=== PATIENT | female | born 1945 | race Caucasian/White ===

== ENCOUNTER 2018-10-31 05:41 | Observation (INO) ==
--- NOTE | 2018-10-17 10:56 | PAT Medication Instructions ---
Medication Instructions Date of Service October 17, 2018 Home Medications levothyroxine 75 mcg PO QAM pantoprazole 40 mg PO DAILY pravastatin 10 mg PO HS aspirin 81 mg PO HS ASK your prescriber and surgeon aspirin 81 mg PO HS Take morning of surgery With a small sip of water, OTHERWISE NOTHING TO EAT OR DRINK AFTER MIDNIGHT: levothyroxine 75 mcg PO QAM pantoprazole 40 mg PO DAILY Take evening before surgery pravastatin 10 mg PO HS Other Notes If you have any questions please call us at [phone] or [phone] or [phone] or [phone]
--- NOTE | 2018-10-18 13:42 | Anesthesiology Consultation ---
Date of Service October 18, 2018 Assessment & Plan (1) Encounter for pre-operative examination: Chart Review Chart Review: Acceptable Risk for Surgery and Patient seen in Pre Admission Testing Teaching & Discussion Pre-Anesthesia Teaching/Discussion Notes: Instructed NPO after midnight before surgery,except medications with 15 cc of water. Medication instructions provided according to the PAT guidelines. History Surgery Operation Date: 10/31/18 07:30 Proposed Procedures p Robotic Laparoscopic Fundoplication - Keshav Soto MD, FACS s with Esophagogastroduodenoscopy - Keshav Soto MD, FACS Height/Weight Height: 5 ft 6 in Weight: 82.7 kg Allergies Allergy/AdvReac Type Severity Reaction Status Date / Time No Known Allergies Allergy Verified 10/11/18 10:16 Medications Home Medications Medication Instructions Recorded Confirmed Last Taken levothyroxine 75 mcg PO QAM 07/27/18 10/11/18 10/11/18 pantoprazole 40 mg PO DAILY 07/27/18 10/11/18 10/11/18 pravastatin 10 mg PO HS 07/27/18 10/11/18 10/10/18 aspirin 81 mg PO HS 08/02/18 10/11/18 10/10/18 Past Medical History Medical History Barretts esophagus GERD (gastroesophageal reflux disease) Hiatal hernia Hyperlipidemia Hypothyroidism Osteoarthritis Past Family History Family History Mother Family history of diabetes mellitus Grandmother (Paternal) Family hx of colon cancer Other No family history of adverse response to anesthesia Past Surgical History Surgical History History of appendectomy History of bilateral tubal ligation History of blepharoplasty bilateral History of colonoscopy History of dilatation and curettage History of esophagogastroduodenoscopy (EGD) History of left breast biopsy benign History of left cataract extraction History of tonsillectomy and adenoidectomy History of tooth extraction History of wisdom tooth extraction Past Anesthesia History No Hx of Anesthesia Complications and No Family Hx of Anesthesia Complications History of PONV No Motion Sickness Screening History of Motion Sickness: No Social History Smoking Status: Former smoker Do You Dip or Chew Tobacco: No Smoking End Date: 1994 Hx Alcohol Use: Yes Alcohol type: wine alcohol intake frequency: other Alcohol Intake Frequency Comment: 1 GLASS A WEEK Hx Substance Use: No substance use type: does not use Exercise / Class Metabolic Activity II 4-5 Yardwork/Stairs/Walk up hill Review of Systems Patient denies chest pain, shortness of breath, dyspnea on exertion, wheezing, palpitations. Physical Exam Vital Signs VITALS BP 136/85 P 80 TEMP 98.0 SP02 96%RA RESP 16 PHYSICAL Full neck and c-spine range of motion. Full TMJ range of motion. TMD 4 finger breaths Mallampati Score 3 Dentition: intact, crowns on upper front, lower right permanent bridge Lungs: clear throughout to auscultation Cardiac: regular rate and rhythm, no murmurs noted Spine: normal Carotid arteries: negative bruit Extremities: no edema Testing Electrocardiogram Date: 10/18/18 Normal sinus rhythm at 77bpm. PRWP. Low voltage QRS. Laboratory Results 10/18/18 14:03 10/18/18 14:03 Blood Type AB Negative 10/18/18 14:03 Antibody Screen NEGATIVE 10/18/18 14:03
[2018-10-18 15:08] LABS: Basophils # (auto) 0.02 K/uL (0-0.2); Basophils % (auto) 0.3 %; Eosinophils # (auto) 0.11 K/uL (0-0.5); Eosinophils % (auto) 1.7 %; Hematocrit (blood only) 38.4 % (37-47); Hemoglobin 13.1 g/dL (12.0-16.0); Immature Granulocytes # (auto) 0.01 K/uL (0.00-0.02); Immature Granulocytes % (auto) 0.2 %; Lymphocytes # (auto) 2.17 K/uL (1.2-3.4); Lymphocytes % (auto) 33.7 %; Mean Corpuscular Hemoglobin 31.7 pg (25-34); Mean Corpuscular Hgb Conc 34.1 g/dL (32-36); Mean Platelet Volume 10.8 fL (7.4-10.4); Monocytes # (auto) 0.54 K/uL (0.11-0.59); Monocytes % (auto) 8.4 %; Neutrophils # (auto) 3.58 K/uL (1.4-6.5); Neutrophils % (auto) 55.7 %; Platelet Count 226 K/uL (130-400); RDW Coefficient of Variation 13.6 % (11.5-14.5); RDW Standard Deviation 46.3 fL (36.4-46.3); Red Blood Count 4.13 M/uL (4.2-5.4); White Blood Count 6.43 K/uL (4.8-10.8)
[2018-10-18 15:15] LABS: Calcium 9.3 mg/dl (8.5-10.1); Creatinine Clr Calc Pharmacy 99.9 ml/min; Est GFR (African American) 108.7; Est GFR (Non-African American) 93.8
[2018-10-31] MEDS ORDERED: LR 15ML/HR IV SCH (06:00)
--- NOTE | 2018-10-31 06:55 | History & Physical Bridge Note ---
Date of Service October 31, 2018 History & Physical Bridge Note I have examined the patient, reviewed the History & Physical and in the interval since the performance of the History & Physical I have noted the following changes of clinical significance: no changes noted
[2018-10-31] MEDS ORDERED: ROCURONIUM BROMIDE 10 MG/ML 5 ML VIAL ONE ×2 (07:03→08:28)
[2018-10-31] MEDS ORDERED: PROPOFOL IV EMULSION 10 MG/ML 20 ML VIAL IV ONE (07:03)
[2018-10-31] MEDS ORDERED: SUCCINYLCHOLINE CHLORIDE 20 MG/ML 10 ML VIAL ONE (07:03)
[2018-10-31] MEDS ORDERED: LIDOCAINE HCL 2% 2 ML VIAL/AMP(20MG/ML) INFIL ONE (07:03)
[2018-10-31] MEDS ORDERED: MIDAZOLAM HCL 1 MG/ML 2ML VIAL ONE (07:03)
[2018-10-31] MEDS ORDERED: fentaNYL citrate 100 MCG/2 ML VIAL ONE (07:03)
[2018-10-31] MEDS ORDERED: DEXAMETHASONE SOD INJ 4 MG/ML VIAL ONE (07:07)
[2018-10-31] MEDS ORDERED: ONDANSETRON INJ 2 MG/ML 2 ML VIAL ONE ×2 (07:07→17:14)
[2018-10-31] MEDS ORDERED: DEXAMETHASONE SOD INJ 4 MG/ML VIAL IV PRN (07:11)
[2018-10-31] MEDS ORDERED: ATROPINE SULFATE 0.1 MG/ML 10ML SYR IV PRN (07:11)
[2018-10-31] MEDS ORDERED: fentaNYL citrate 100 MCG/2 ML VIAL IV PRN (07:11)
[2018-10-31] MEDS ORDERED: ePHEDrine sulfate 50 MG/ML AMP IV PRN (07:11)
[2018-10-31] MEDS ORDERED: KETOROLAC 30 MG/ML VIAL IV PRN (07:11)
[2018-10-31] MEDS ORDERED: ONDANSETRON INJ 2 MG/ML 2 ML VIAL IV PRN (07:11)
[2018-10-31] MEDS ORDERED: HYDROmorphone INJ 2 MG/ML SYR/VIAL IV PRN (07:11)
[2018-10-31] MEDS ORDERED: SODIUM CHLORIDE 0.9% PF 50 ML VIAL ONE (07:22)
[2018-10-31] MEDS ORDERED: BUPIVACAINE 0.5 % 5 MG/1 ML MPF 30ML VIAL ONE (07:22)
[2018-10-31] MEDS ORDERED: BUPIVACAINE LIPOSOME 1.3% 266 MG/20 ML VIAL ONE (07:22)
[2018-10-31] MEDS ORDERED: HYDROmorphone INJ 2 MG/ML SYR/VIAL ONE (08:09)
[2018-10-31] MEDS ORDERED: PHENYLEPHRINE 100MCG/ML 5ML SYR ONE (08:28)
[2018-10-31] MEDS ORDERED: ePHEDrine sulfate 50 MG/ML SYR ONE (08:28)
--- NOTE | 2018-10-31 10:24 | Post Operative Brief Note ---
Immediate Post Op Note v1 Date of Surgery October 31, 2018 Pre & Post Diagnosis Operation Date: 10/31/18 07:30 Pre-Op Diagnosis: Gastroesophageal Reflux Post-Op Diagnosis: Gastroesophageal Reflux Procedure Operation Date: 10/31/18 07:30 Actual Procedures p Robotic Repair hiatal hernia with bioprosthetic patch;Laparoscopic Elly F undoplication (Not Applicable) - Keshav Soto MD, FACS s Esophagogastroduodenoscopy(Not Applicable) - Keshav Soto MD, FACS Surgeon Keshav Soto MD, FACS Pulp Maker Deidre Reveles Estimated Blood Loss 10 Findings Consistent with Post-Op Diagnosis Drains Vivar Catheter
[2018-10-31] MEDS ORDERED: METOCLOPRAMIDE HCL INJ 5 MG/ML 2 ML VIAL ONE (10:43)
[2018-10-31] MEDS ORDERED: METOCLOPRAMIDE HCL INJ 5 MG/ML 2 ML VIAL IV ONE (10:45)
--- NOTE | 2018-10-31 10:53 | XRay Report ---
XR chest 1V portable CLINICAL HISTORY: s/p jo fundoplication postoperative evaluation COMPARISON STUDY: No previous studies for comparison. FINDINGS: Lungs are considered clear. No evidence for pneumothorax. Small amount subcutaneous and low cervical subcutaneous emphysematous change. Mild bibasilar atelectasis. IMPRESSION: 1. Postoperative changes including subcutaneous emphysematous change. 2. Lungs are grossly clear with mild left basilar atelectasis. 3. Fixed hiatal hernia. The above report was generated using voice recognition software. It may contain grammatical, syntax or spelling errors. Electronically signed by: Dennis Santos M.D. 10/31/2018 10:51 AM
[2018-10-31] MEDS ORDERED: OXYCODONE HCL IR 5 MG TAB (IMMEDIATE RELEASE) PO PRN (11:50)
[2018-10-31] MEDS ORDERED: METOCLOPRAMIDE HCL INJ 5 MG/ML 2 ML VIAL IV SCH (12:00)
--- NOTE | 2018-10-31 12:00 | Anesthesiology Progress Note ---
Date of Service October 31, 2018 Anesthesia Post Procedure Vital Signs Vital Signs: Temp Pulse Pulse Resp BP Pulse Ox 10/31/18 11:15 36.4 C L 99 H 14 138/78 99 10/31/18 11:05 95 H 12 145/86 H 100 10/31/18 10:55 86 14 135/85 100 10/31/18 10:45 97 H 15 134/68 99 10/31/18 10:37 36.2 C L 109 H 16 137/86 99 10/31/18 06:07 36.8 C 77 20 158/98 H 96 Pain Intensity Abdomen: Pain Intensity: 2 Transfer of Care Handoff Completed per policy Notes Mental Status: alert / awake / arousable and participated in evaluation Patient Amnestic to Procedure: Yes Nausea / Vomiting: adequately controlled Pain: adequately controlled Airway Patency, RR, SpO2: stable & adequate BP & HR: stable & adequate Hydration State: stable & adequate Anesthetic Complications: no major complications apparent
[2018-10-31] MEDS: ONDANSETRON INJ 2 MG/ML 2 ML VIAL IV SCH ×2 (12:02→15:01)
[2018-10-31] MEDS: D5W AND 1/2NSS 1,000 ML IV SCH ×2 (12:47→22:39)
[2018-10-31] MEDS: ACETAMINOPHEN 1,000 MG/100 ML VIAL IV SCH ×2 (14:06→20:41)
[2018-10-31] MEDS: MoRPHine SULFATE 2 MG/ML CARP IV PRN (16:59)
[2018-10-31] MEDS ORDERED: ONDANSETRON INJ 2 MG/ML 2 ML VIAL IV STA (17:10)
[2018-10-31] MEDS ORDERED: DEXTROSE 5% IV ONE (17:30)
[2018-10-31] MEDS ORDERED: ONDANSETRON HCL IV ONE (17:30)
[2018-10-31] MEDS: DOCUSATE SODIUM 100 MG CAP PO SCH (20:34)
[2018-10-31] MEDS ORDERED: PRAVASTATIN SOD 10 MG TAB PO SCH (21:00)
[2018-10-31] MEDS ORDERED: ASPIRIN 81 MG ECTAB PO SCH (21:00)
[2018-10-31] MEDS: METOCLOPRAMIDE HCL INJ 5 MG/ML 2 ML VIAL IV SCH (21:10)
--- NOTE | 2018-10-31 22:18 | Operative Report ---
DATE OF OPERATION: 10/31/2018 DATE OF PROCEDURE: 10/31/2018 PREOPERATIVE DIAGNOSES: 1. Hiatal hernia with gastroesophageal reflux. 2. Cloud's esophagus. POSTOPERATIVE DIAGNOSES: 1. Hiatal hernia with gastroesophageal reflux. 2. Cloud's esophagus. PROCEDURE PERFORMED: 1. Robotic-assisted laparoscopic repair of hiatal hernia with a patch using a bioprosthetic patch. 2. Floppy Elly fundoplication. 3. Esophagoscopy on table. SURGEON: Keshav Soto MD SPA ASSOCIATE: BRIANNA Pickering (MrNikhil Norman was present for the entire case and was instrumental and being at the patient's bedside while I was at the console). ANESTHESIA: General anesthesia with endotracheal intubation. INDICATION FOR PROCEDURE AND FINDINGS: Graciela Campo is a 73-year-old female with a history of Cloud's esophagus and gastroesophageal reflux disease who also complains of marked eructation. I saw her twice in the office and we discussed a repair which would help her reflux and would also help her eructation. She understands. Had much discussion and she has decided she would like this done. On 10/31/2018, the patient underwent an uncomplicated repair. She did have a hiatal hernia and I did repair this with 2 simple #1 silk sutures. I also placed a small patch to reinforce this. We then did a floppy Elly fundoplication with 3 sutures. She tolerated it well and her table esophagoscopy looked quite good. DESCRIPTION OF PROCEDURE: The patient was brought to operating room and laid in supine position. General anesthesia was induced and endotracheal intubation was performed. The patient was then prepped and draped in usual sterile fashion. After appropriate timeout have been called, I placed 6 different ports. A 12 mm port was placed in the midline few centimeters above the umbilicus and two 8 mm ports were placed in the midclavicular line below the costal margin. Two 5 mm ports were placed more inferiorly and caudally. There were really no adhesions. Upon entering, we insufflated CO2 and could see quite nicely. The liver retractor was placed and I was a bit surprised to see that she had a bit more of a crural defect, then I thought she would based on her studies. I immediately started by using the vessel sealer from the [employer] and took down all the short gastrics and freed up the stomach quite nicely from the left side. I went into the left crura and I went all the way around to the right crura posteriorly care taken to avoid any injuries posteriorly. I then freed up the crura on the left. We had plenty of length to the esophagus. Two simple 0 silk sutures were used to reapproximate the crura. I then used a piece of OviTex absorbable suture. I cut a very small piece about 3 x 2 cm in order to suture to the repair. I had freed up enough of the short gastrics. I was easily able to bring the posterior fundus around and we performed a floppy Elly by placing 2 sutures into the posterior fundus, esophagus and anterior fundus. I placed 1 last suture in the anterior and posterior fundus and sutured to the anterior crura. We then undocked the robot and went from a reverse Trendelenburg to a supine position. I then did an esophagoscopy without difficulty. The GE junction looked quite good on retroflexion, our fundoplication looked good too. We had no evidence of any leak or insufflating air. We then suctioned out the stomach. Two #1 Maxon were used to close the assistance port and the camera port. A 4-0 Monocryl was then used in running subcuticular fashion to approximate the wound edges. She tolerated the procedure well. I attest to the content of the Intraoperative Record and any orders documented therein. Any exception s are noted below.
[2018-11-01] MEDS: ONDANSETRON HCL 8 MG in DEXTROSE 5% 50 ML IV SCH ×2 (03:57→09:17)
[2018-11-01] MEDS: ACETAMINOPHEN 1,000 MG/100 ML VIAL IV SCH (04:54)
[2018-11-01] MEDS: METOCLOPRAMIDE HCL INJ 5 MG/ML 2 ML VIAL IV SCH ×2 (04:55→14:17)
[2018-11-01] MEDS ORDERED: LEVOTHYROXINE SODIUM 75 MCG TABLET PO SCH (06:30)
[2018-11-01 07:50] LABS: Partial Thromboplastin Ratio 0.9; Partial Thromboplastin Time 25.5 Seconds (21.0-31.0); Prothrombin Time 10.7 Seconds (9.0-12.0)
[2018-11-01] MEDS: MoRPHine SULFATE 2 MG/ML CARP IV PRN ×2 (08:00→11:52)
--- NOTE | 2018-11-01 08:08 | Anesthesiology Progress Note ---
Date of Service November 01, 2018 Anesthesia Post Procedure Vital Signs Vital Signs: Temp Pulse Pulse Resp BP Pulse Ox 11/01/18 07:06 36.8 C 92 H 16 118/73 91 11/01/18 03:52 36.8 C 97 H 16 153/75 H 93 10/31/18 23:25 36.8 C 102 H 18 128/75 96 10/31/18 22:34 36.8 C 105 H 16 133/79 92 10/31/18 20:30 36.9 C 107 H 16 129/78 93 10/31/18 18:30 36.9 C 105 H 16 133/80 92 10/31/18 16:30 36.6 C 106 H 16 129/68 93 10/31/18 14:35 102 H 20 133/82 96 10/31/18 13:35 36.4 C L 100 H 16 129/83 97 10/31/18 12:30 91 H 16 122/73 98 10/31/18 12:05 82 16 133/75 99 10/31/18 11:35 36.3 C L 89 18 139/84 95 10/31/18 11:15 36.4 C L 99 H 14 138/78 99 10/31/18 11:05 95 H 12 145/86 H 100 10/31/18 10:55 86 14 135/85 100 10/31/18 10:45 97 H 15 134/68 99 10/31/18 10:37 36.2 C L 109 H 16 137/86 99 Pain Intensity Abdomen: Pain Intensity: 3 Notes Mental Status: alert / awake / arousable and participated in evaluation Patient Amnestic to Procedure: Yes Nausea / Vomiting: improving with treatment Pain: adequately controlled Airway Patency, RR, SpO2: stable & adequate BP & HR: stable & adequate Hydration State: stable & adequate Anesthetic Complications: no major complications apparent and Pt Satisfied with anesthetic care
--- NOTE | 2018-11-01 08:56 | Fluoroscopy Report ---
OPTIRAY SWALLOW CLINICAL HISTORY: s/p jo COMPARISON STUDY: Barium swallow July 24, 2018. FLUOROSCOPY TIME: 0.7 minutes. FLUOROSCOPIC IMAGES: 7. FINDINGS: These images demonstrate expected narrowing at the level of the Jo wrap. Contrast passe s into the stomach. No contrast extravasation is identified. Mucosal detail is diminished on this une nhanced exam. Unremarkable gastric emptying was noted with contrast within the duodenum. IMPRESSION: Expected findings following Jo fundoplication. No leak. Electronically signed by: Mick Sandoval M.D. 11/01/2018 8:55 AM
[2018-11-01] MEDS ORDERED: ENOXAPARIN INJ 40 MG/0.4 ML SYR SQ SCH (09:00)
[2018-11-01] MEDS ORDERED: PANTOprazole 40 MG TAB PO SCH (09:00)
[2018-11-01] MEDS: D5W AND 1/2NSS 1,000 ML IV SCH (09:16)
[2018-11-01] MEDS: DOCUSATE SODIUM 100 MG CAP PO SCH (09:18)
[2018-11-01 11:12] LABS: Appearance Urine Clear (Clear); Bilirubin Urine Negative (Negative); Blood Urine Negative (Negative); Color Urine Yellow; Glucose Urine UA Negative (Negative); Ketones Urine Negative (Negative); Leukocyte Esterase Urine Negative (Negative); Nitrite Urine Negative (Negative); Protein Urine Negative (Negative); Urobilinogen Urine Negative (Negative); pH Urine 6.5 (4.5-7.5)
[2018-11-01 11:30] VITALS: BP 134/84; PULSE 87; TEMP 97.5; O2SAT 92
[2018-11-01] MEDS ORDERED: ACETAMINOPHEN 325 MG TAB PO SCH (12:00)
--- NOTE | 2018-11-01 23:25 | Discharge Summary ---
ADMISSION DIAGNOSIS: Gastroesophageal reflux disease. DISCHARGE DIAGNOSIS: Gastroesophageal reflux disease. HOSPITAL COURSE: This is a pleasant 73-year-old female that Dr. Soto saw and evaluated for gastroesophageal reflux as an outpatient. On date of admission, Dr. Soto performed a robotic assisted laparoscopic repair of a hiatal hernia with bioprosthetic patch and he also performed a Elly fundoplication at the same time. An intraoperative EGD was also performed. The patient's surgery was uneventful. The day following surgery, the patient was noted to be hemodynamically stable, doing well. She was tolerating a liquid diet. She did have a barium swallow the day after surgery that showed findings consistent with a Elly fundoplication. The contrast easily passed into the stomach with no extravasation. Unremarkable gastric emptying was also noted as the contrast did empty into the duodenum as expected. The patient did tolerate liquids following the study and she was deemed stable for discharge home on postoperative day #1. The patient was provided with written and verbal instructions on wound care, diet, and followup. She was instructed to remove her dressings in 3 days and shower thereafter. She was told not to lift objects heavier than [address] until cleared to do so by Dr. Soto. Our office will call her for a 1-week followup appointment. She was also told to continue a full liquid diet and not to consume any foods such as bread or meat that require chewing. She has had all of her questions answered and is deemed stable for discharge home.
== END 2018-11-01 15:03 | disposition home or self-care (01) ==
LOC: 3W 05:41 → ASU 05:41